=== PATIENT | male | born 1945 ===

== ENCOUNTER 2024-02-01 05:30 | Day surgery (SDC) | payer OTHER ==
[2024-01-31 08:52] LABS: HEMATOCRIT 51.1 % (39.0-48.0); HEMOGLOBIN 17.6 g/dL (13-16.00); MEAN CELL VOLUME 98.3 fL (80.0-100.00); MEAN CORPUSCULAR HEMOGLOBIN 33.8 pg (27.00-32.0); MEAN CORPUSCULAR HGB CONC 34.4 g/dl (32.0-36.0); PLATELET COUNT 177 K/uL (150-450)
[2024-01-31 08:53] LABS: URINE APPEARANCE Clear; URINE BILIRRUBIN Negative (NEGATIVE); URINE BLOOD Negative; URINE COLOR Yellow; URINE GLUCOSE Negative (NEGATIVE); URINE LEUKOCYTE Negative; URINE NITRATE Negative; URINE PROTEIN Negative (NEGATIVE)
[2024-01-31 08:54] LABS: URINE EPITHELIAL CELLS 1.8 uL (0.0-38.8)
[2024-01-31 08:59] LABS: URINE RBC 1.6 uL (0.0-20.8)
[2024-01-31 09:18] LABS: INR 1.26; PARTIAL THROMBOPLASTIN TIME 25.9 SECONDS (22.0-34.0)
[2024-01-31 09:27] LABS: ALBUMIN 3.8 gm/dL (3.4-5.0); BILIRUBIN TOTAL 1.45 mg/dL (0.3-1.2); CREATININE SERUM 1.19 mg/dL (0.70-1.30); GFR 59.12; GLOBULINA 3.6 G/DL (2.4-3.5); POTASSIUM 3.58 mEq/L (3.5-5.1); TOTAL PROTEIN 7.4 gm/dL (6.4-8.2)
[~2024-02-01 05:30] MED LIST: AMLODIPINE-OLM1 EAC2; ATORVASTATIN CA10 MG PO; ELIQUIS2.5 MG PO; HYDROCHLOROTHIA25 MG PO; KAPSPARGO SPRI100 MG PO; NASAL MIST126 ML; PROTONIX20 MG PO; TAMS0.4C PO; ZESTRIL2.5 MG
[2024-02-01] MEDS ORDERED: CEFAZOLIN SODIUM 1,000 MG VIAL IV SCH (13:15)
== END 2024-02-01 20:35 | disposition home or self-care (01) ==
LOC: CIR.AMB 05:30
PROVIDERS: ATTEND Surgery
DX: K40.30 Unilateral inguinal hernia, with obstruction, without gangrene, not specified as recurrent (principal); I10 Essential (primary) hypertension
CPT/HCPCS: 49507; C1781